=== PATIENT | male | born 1960 | race Caucasian/White ===

== ENCOUNTER → 2023-06-21 17:08 | Outpatient (REF) | payer SELFPAY | LOC: RAD 17:08 | PROVIDERS: ATTENDING PHYSICIAN Internal Medicine Clinical Cardiac Electrophysiology; FAMILY PHYSICIAN Internal Medicine | DX: R07.89 Other chest pain (principal) | CPT/HCPCS: 75571 ==

== ENCOUNTER → 2023-06-29 08:19 | Outpatient (REF) | payer OTHER, SELFPAY | LOC: RCS 08:19 | PROVIDERS: ATTENDING PHYSICIAN Internal Medicine Clinical Cardiac Electrophysiology; FAMILY PHYSICIAN Internal Medicine | DX: R07.89 Other chest pain (principal) | CPT/HCPCS: 93306 ==